=== PATIENT | female | born 1990 | race Caucasian/White ===

== ENCOUNTER 2016-11-23 16:46 | Outpatient (CLI) | payer MEDICAID ==
[2016-11-24 20:57] LABS: TEST RESULT REPORT (())
== END 2016-11-23 16:47 | disposition home or self-care (01) ==
LOC: LAB.R 16:46
PROVIDERS: ATTEND Nurse Practitioner Obstetrics & Gynecology
DX: N76.0 Acute vaginitis (principal)
CPT/HCPCS: 81599; 87480; 87510; 87660

== ENCOUNTER 2017-05-13 08:00 | Outpatient (CLI) | payer MEDICAID | END 2017-05-13 08:01 | disposition home or self-care (01) | LOC: LAB.R 08:00 | PROVIDERS: ATTEND Registered Nurse | DX: Z11.3 Encounter for screening for infections with a predominantly sexual mode of transmission (principal) | CPT/HCPCS: 87491; 87591 ==

== ENCOUNTER 2017-06-05 15:14 | Emergency (ER) | payer MEDICAID ==
[2017-06-05] MEDS ORDERED: traMADol 50 MG TABLET PO STA (17:06)
[2017-06-05] MEDS ORDERED: IBUPROFEN 600 MG TABLET PO STA (17:06)
[2017-06-05] MEDS ORDERED: traMADol 50 MG TABLET PO ONE (17:24)
[2017-06-05] MEDS ORDERED: IBUPROFEN 600 MG TABLET PO ONE (17:24)
--- NOTE | 2017-06-05 17:51 | XRAY Preliminary Report ---
Exam: XR HAND 3 VIEW RT IMPRESSION: 1. No acute osseous abnormalities. [facility] SITE ID: [id number]
--- NOTE | 2017-06-05 17:53 | XRAY Report ---
EXAM: RIGHT HAND RADIOGRAPHY EXAM DATE: 06/05/2017 04:57 PM. CLINICAL HISTORY: Crush injury. Pain. Right 3-5 MTP injury. COMPARISON: None. TECHNIQUE: 3 views. FINDINGS: Bones: Normal. No fractures or bone lesions. Joints: Normal. No subluxations. Soft Tissues: No radiopaque foreign bodies. IMPRESSION: 1. No acute osseous abnormalities. [facility] Referring Provider Line: [phone] SITE ID: [id number]
--- NOTE | 2017-06-05 18:09 | ED Physician Documentation ---
History of Present Illness - Stated complaint Stated Complaint: R HAND INJ - Chief complaint Chief Complaint: Ext Problem - Additonal information Additional information: 27 year old f with right hand pain after cough fell onto hand. 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. * [From 1 + Iron] vitamins with Allergy Unknown Verified 06/05/17 15:21 calcium * [From 1 + Iron] Sulfa (Sulfonamide Allergy Rash Verified 06/05/17 15:21 Antibiotics) - Social History Does the pt smoke?: No Smoking Status: Never smoker Does the pt drink ETOH?: No Does the pt have substance abuse?: No - Immunizations Immunizations are current?: Yes - POLST Patient has POLST: No PD ED PE NORMAL - Extremities Extremities: Other (mild swelling dorsum right hand, neurovascularly intact, no finger deformities, no wrist pain or TTP. FROM hand ) Results - Vitals Vitals: Oxygen O2 Source Room air - Rads (name of study) right orozco Radiology: Other (no fractures) Departure - Departure Disposition: 01 Home, Self Care Clinical Impression: Pain of upper extremity Qualifiers: Laterality: right Qualified Code(s): M79.601 - Pain in right arm Condition: Good Instructions: ED Contusion Upper Extr Ch Comments: Continue to ice your hand and take ibuprofen and Tylenol for your pain. No fractures were identified on your hand x-ray today. Return to the emergency department if you develop any weakness, numbness,or cold temperature of your hand. He may still continue to have pain from soft tissue injury to her hand. Make an appointment to follow-up with her primary care doctor for further management of this. Discharge Date/Time: 06/05/17 18:16
[2017-06-05 18:17] VITALS: BP 108/66
== END 2017-06-05 18:16 | disposition home or self-care (01) ==
LOC: ED 15:14
DX: M79.601 Pain in right arm (principal); W20.8XXA Other cause of strike by thrown, projected or falling object, initial encounter; J45.909 Unspecified asthma, uncomplicated
CPT/HCPCS: 73130; 99282; 99283; A9270

== ENCOUNTER 2017-07-10 21:14 | Emergency (ER) | payer MEDICAID ==
[2017-07-10 21:25] VITALS: BP 121/78
[2017-07-10] MEDS ORDERED: BENZONATATE 100 MG CAPSULE PO STA (21:25)
[2017-07-10] MEDS ORDERED: AMOXICILLIN 250 MG CAPSULE PO STA (21:25)
--- NOTE | 2017-07-10 21:27 | ED Physician Documentation ---
PD HPI HEENT - Stated complaint Stated Complaint: SORE THROAT - Chief complaint Chief Complaint: Heent - History obtained from History obtained from: Patient - History of Present Illness Timing - onset: Other (She developed a sore throat a few days ago and lost her voice, she is also had a runny nose and a cough. No measured fevers but she has had some chills. Today she sneezed and she developed a severe right earache that is bad when she coughs but not too bad otherwise.) Review of Systems Constitutional: reports: Chills. denies: Fever Ears: reports: Ear pain Nose: reports: Rhinorrhea / runny nose Throat: reports: Sore throat Respiratory: reports: Cough. 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 : None HEENT: None Psych: None Musculoskeletal: None Derm: None - Past Surgical History Past Surgical History: No - Present Medications Home Medications: Ambulatory Orders Medication Instructions Recorded Confirmed Amoxicillin 500 mg PO TID #30 capsule 07/10/17 Benzonatate 200 mg PO TID PRN #20 capsule 07/10/17 Guaifenesin/Pseudoephedrne HCl 1 each PO BID PRN #20 tab.er.12h 07/10/17 [Mucinex D ER 600-60 mg Tablet] - Allergies Allergies/Adverse Reactions: Allergies Allergy/AdvReac Type Severity Reaction Status Date / Time ferrous fumarate Allergy Unknown Verified 06/05/17 15:21 [From 1 + Iron] folic acid Allergy Unknown Verified 06/05/17 15:21 [From 1 + Iron] vit,tx Allergy Unknown Verified 06/05/17 15:21 calc,iron,foli... * [From 1 + Iron] vitamins with Allergy Unknown Verified 06/05/17 15:21 calcium * [From 1 + Iron] Sulfa (Sulfonamide Allergy Rash Verified 06/05/17 15:21 Antibiotics) - Social History Does the pt smoke?: No Smoking Status: Never smoker Does the pt drink ETOH?: No Does the pt have substance abuse?: No - Immunizations Immunizations are current?: Yes - POLST Patient has POLST: No PD ED PE NORMAL - Vitals Vital signs reviewed: Yes - General General: Alert and oriented X 3, No acute distress - HEENT HEENT: Other (Right otitis media, left TM is normal. Oropharynx with mildly red pillars but no exudates. No anterior cervical adenopathy.) - Neck Neck: Supple, no meningeal sign - Cardiac Cardiac: RRR, No murmur - Respiratory Respiratory: No respiratory distress, Clear bilaterally - Abdomen Abdomen: Non tender - Neuro Neuro: Alert and oriented X 3, Normal speech - Psych Psych: Normal mood, Normal affect Results - Vitals Vitals: Vital Signs - 24 hr 07/10/17 21:24 Temperature 36.7 C Heart Rate 90 Respiratory 18 Rate Blood Pressure 121/78 O2 Saturation 99 Oxygen O2 Source Room air Departure - Departure Disposition: Home, Self Care Clinical Impression: ROM (right otitis media) Qualifiers: Otitis media type: suppurative Chronicity: acute Recurrence: not specified as recurrent Spontaneous tympanic membrane rupture: without spontaneous rupture Qualified Code(s): H66.001 - Acute suppurative otitis media without spontaneous rupture of ear drum, right ear Condition: Good Record reviewed to determine appropriate education?: Yes Instructions: ED Otitis Media Acute Adult Prescriptions: Amoxicillin 500 mg PO TID #30 capsule Benzonatate 200 mg PO TID PRN #20 capsule PRN Reason: Cough Guaifenesin/Pseudoephedrne HCl [Mucinex D ER 600-60 mg Tablet] 1 each PO BID PRN #20 tab.er.12h PRN Reason: congestion Comments: Call your doctor to arrange a follow-up appointment, make the next available appointment. In the interim, return anytime if worse or if new symptoms develop. Discharge Date/Time: 07/10/17 21:30
== END 2017-07-10 21:30 | disposition home or self-care (01) ==
LOC: ED 21:14
DX: H66.001 Acute suppurative otitis media without spontaneous rupture of ear drum, right ear (principal)
CPT/HCPCS: 99283; A9270

== ENCOUNTER 2017-10-16 09:47 | Day surgery (SDC) | payer MEDICAID ==
[2017-10-16 10:33] LABS: GLUCOSE, URINE (UA) NEGATIVE (NEGATIVE); KETONES,URINE (UA) 40 mg/dL (NEGATIVE); LEUKOCYTE ESTERASE, URINE NEGATIVE (NEGATIVE); NITRITE,URINE NEGATIVE (NEGATIVE); OCCULT BLOOD,URINE NEGATIVE (NEGATIVE); PROTEIN,URINE TRACE mg/dL (NEGATIVE); UROBILINOGEN,URINE 0.2 (NORMAL) E.U./dL (NORMAL)
[2017-10-16 10:46] LABS: CLARITY,URINE SL. CLOUDY (CLEAR); HCG UR QUAL NEGATIVE
[2017-10-16 10:49] LABS: BILIRUBIN,URINE NEGATIVE (NEGATIVE); ICTOTEST,URINE NEGATIVE
[2017-10-16 10:50] LABS: BACTERIA,URINE Moderate /HPF (None Seen); MUCUS,URINE Marked Strands; RBC,URINE 0-5 /HPF (0-5); SPERM,URINE PRESENT; SQUAMOUS EPITHELIAL CELL,UR MOD Squamous (<= Few)
[2017-10-16 10:59] LABS: BASOPHILS % (AUTO) 0.3 %; HGB - HEMOGLOBIN 11.8 g/dL (12.0-16.0); LYMPHOCYTES # (AUTO) 1.2 10^3/uL (1.5-3.5); LYMPHOCYTES % (AUTO) 7.4 %; MEAN CORPUSCULAR HGB CONC 32.6 g/dL (32.0-36.0); MEAN CORPUSCULAR VOLUME 79.8 fL (81.0-99.0); MEAN PLATELET VOLUME 8.7 fL (7.9-10.8); MONOCYTES # (AUTO) 0.9 10^3/uL (0.0-1.0); NEUTROPHILS # (AUTO) 13.5 10^3/uL (1.5-6.6); NEUTROPHILS % (AUTO) 86.3 %; PLT - PLATELET COUNT 378 10^3/uL (130-450); RED BLOOD COUNT 4.54 10^6/uL (4.20-5.40); RED CELL DISTRIBUTION WIDTH 16.4 % (12.0-15.0); WHITE BLOOD COUNT 15.7 x10^3/uL (4.8-10.8)
[2017-10-16 11:04] LABS: ALBUMIN 4.9 g/dL (3.2-5.5); ALBUMIN/GLOBULIN RATIO 1.2 (1.0-2.2); BILIRUBIN,TOTAL 0.8 mg/dL (0.2-1.0); CALCIUM 9.4 mg/dL (8.5-10.3); CREATININE 0.6 mg/dL (0.4-1.0); TOTAL PROTEIN 8.9 g/dL (6.7-8.2)
--- NOTE | 2017-10-16 11:04 | ED Physician Documentation ---
PD HPI ABD PAIN - Stated complaint Stated Complaint: AB PX/NAUSEA/LIGHTHEADED - Chief complaint Chief Complaint: Abd Pain - History obtained from History obtained from: Patient - History of Present Illness Timing - onset: Last night (about 11:30 pm, onset RLQ pain which worsened and persisted into today, with considerable abd pain today. Nausea without vomiting. No vaginal bleeding.) Timing - duration: Hours (12) Timing - details: Gradual onset, Still present Quality: Cramping, Aching, Pain Location: RLQ Radiation: Lower back Improved by: Position. No: Eating Worsened by: Moving, Position, Palpation. No: Eating Associated symptoms: Nausea. 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 * [From 1 + Iron] vitamins with Allergy Unknown Verified 06/05/17 15:21 calcium * [From 1 + Iron] Sulfa (Sulfonamide Allergy Rash Verified 06/05/17 15:21 Antibiotics) - Social History Does the pt smoke?: No Smoking Status: Never smoker Does the pt drink ETOH?: No Does the pt have substance abuse?: No - Immunizations Immunizations are current?: Yes - POLST Patient has POLST: No PD ED PE NORMAL - Vitals Vital signs reviewed: Yes - General General: Alert and oriented X 3, Well developed/nourished, Other (in marked pain , knees drawn up. ) - HEENT HEENT: Pharynx benign - Neck Neck: Supple, no meningeal sign, No adenopathy - Cardiac Cardiac: RRR, No murmur - Respiratory Respiratory: Clear bilaterally - Abdomen Abdomen: Soft, No organomegaly, Other (distended and generally tender with percussion and rebound tenderness most focused on RLQ. ) - Female Female : Deferred - Rectal Rectal: Deferred - Back Back: No CVA TTP - Derm Derm: Normal color - Extremities Extremities: No deformity, Normal ROM s pain, No calf tenderness / cord - Neuro Neuro: Alert and oriented X 3, No motor deficit, Normal speech Results - Vitals Vitals: Vital Signs - 24 hr 10/16/17 10/16/17 10/16/17 10:08 12:25 12:55 Temperature 36.8 C Heart Rate 118 H 84 82 Respiratory 18 16 15 Rate Blood Pressure 101/74 104/67 100/65 O2 Saturation 100 100 100 Oxygen O2 Source Room air - Labs Labs: Laboratory Tests 10/16/17 10/16/17 10/16/17 10:20 10:20 10:20 WBC 15.7 H RBC 4.54 Hgb 11.8 L Hct 36.2 L MCV 79.8 L MCH 26.0 L MCHC 32.6 RDW 16.4 H Plt Count 378 MPV 8.7 Neut # 13.5 H Lymph # 1.2 L [place] # 0.9 Eos # 0.0 Baso # 0.0 Absolute Nucleated RBC 0.01 Nucleated RBC % 0.0 Sodium 133 L Potassium 3.6 Chloride 99 L Carbon Dioxide 24 Anion Gap 10.0 BUN 15 Creatinine 0.6 Estimated GFR (MDRD) 122 Glucose 130 H Calcium 9.4 Total Bilirubin 0.8 AST 23 ALT 12 Alkaline Phosphatase 53 Total Protein 8.9 H Albumin 4.9 Globulin 4.0 Albumin/Globulin Ratio 1.2 Lipase 21 L Urine Color DARK YELLOW Urine Clarity SL. CLOUDY Urine pH 6.0 Ur Specific Park[place] >=1.030 H Urine Protein TRACE Urine Glucose (UA) NEGATIVE Urine Ketones 40 H Urine Occult Blood NEGATIVE Urine Nitrite NEGATIVE Urine Bilirubin NEGATIVE Urine Urobilinogen 0.2 (NORMAL) Ur Leukocyte Esterase NEGATIVE Urine RBC 0-5 Urine WBC 0-3 Ur Squamous Epith Cells MOD Squamous H Urine Bacteria Moderate H Urine Mucus Marked Strands Urine Sperm PRESENT Ur Microscopic Review INDICATED Urine Culture Comments NOT INDICATED Urine HCG, Qual NEGATIVE 04/15/18 12:50 WBC RBC Hgb 8.8 L Hct 26.9 L MCV MCH MCHC RDW Plt Count MPV Neut # Lymph # [place] # Eos # Baso # Absolute Nucleated RBC Nucleated RBC % Sodium Potassium Chloride Carbon Dioxide Anion Gap BUN Creatinine Estimated GFR (MDRD) Glucose Calcium Total Bilirubin AST ALT Alkaline Phosphatase Total Protein Albumin Globulin Albumin/Globulin Ratio Lipase Urine Color Urine Clarity Urine pH Ur Specific [place] Urine Protein Urine Glucose (UA) Urine Ketones Urine Occult Blood Urine Nitrite Urine Bilirubin Urine Urobilinogen Ur Leukocyte Esterase Urine RBC Urine WBC Ur Squamous Epith Cells Urine Bacteria Urine Mucus Urine Sperm Ur Microscopic Review Urine Culture Comments Urine HCG, Qual - Rads (name of study) abd CT Radiology: Prelim report reviewed, Discussed with rads, EMP read contemporaneously (signfiicant free fluid in pelvis and tracking right abd/ gutter. Blushing right lower/adnexal area c/w acute ongoing bleeding. ) PD MEDICAL DECISION MAKING - ED course Complexity details: reviewed results, re-evaluated patient (Her pain level is improved. She is given IV fluids. Her repeat hemoglobin shows considerable drop in the level consistent with ongoing bleeding. Abdominal exam is crusher tender largely in the lower abdomen with some distention consistent with peritoneal signs. Dr. Alis Renee is here to evaluate the patient and she will be taken to the OR for laparoscopic surgery.), considered differential, d/ w patient, d/w senior [employer] consultant (Dr. Renee - called to see patient for concern of ruptured cyst/significant pelvic bleeding. ) Departure - Departure Disposition: ED Transfer to [facility] Clinical Impression: Intraperitoneal bleeding Abdominal pain Qualifiers: Abdominal location: right lower quadrant Qualified Code(s): R10.31 - Right lower quadrant pain Condition: Serious Record reviewed to determine appropriate education?: Yes
[2017-10-16] MEDS ORDERED: ACETAMINOPHEN 1,000 MG/100 ML 100 ML IV STA (11:18)
[2017-10-16] MEDS ORDERED: HYDROmorphone 1 MG/ML CARPUJECT IVP STA ×2 (11:18→12:10)
[2017-10-16] MEDS ORDERED: ONDANSETRON 4 MG/2 ML VIAL IVP STA (11:18)
[2017-10-16] MEDS ORDERED: SODIUM CHLORIDE 0.9% 1,000 ML IV ONE ×2 (11:18→12:42)
[2017-10-16] MEDS ORDERED: IOPAMIDOL-300 100 ML VIAL ONE (11:35)
[2017-10-16] MEDS ORDERED: IOPAMIDOL-300 100 ML VIAL IVP ONE (11:46)
[2017-10-16 12:54] LABS: HGB - HEMOGLOBIN 8.8 g/dL (12.0-16.0)
--- NOTE | 2017-10-16 12:58 | CT Report ---
EXAM: CT ABDOMEN AND PELVIS EXAM DATE: 10/16/2017 11:46 AM. CLINICAL HISTORY: RLQ pain since last night. COMPARISONS: CT abdomen/pelvis 08/20/2014. TECHNIQUE: Routine helical CT imaging was performed through the abdomen and pelvis. IV contrast: ISOV UE 300 100mL. Enteric contrast: No. Reconstructions: Coronal and sagittal. In accordance with CT protocol optimization, one or more of the following dose reduction techniques w ere utilized for this exam: automated exposure control, adjustment of mA and/or KV based on patient s ize, or use of iterative reconstructive technique. FINDINGS: Lung Bases: Unremarkable. Liver: Normal. No masses. Gallbladder/Bile Ducts: Unremarkable. Spleen: Normal. Pancreas: Normal. Adrenal Glands: Normal. Kidneys: Normal. No masses or hydronephrosis. Peritoneal Cavity/Bowel: There is fairly large volume intermediate density free peritoneal fluid sugg esting blood products with areas of denser attenuation in the pelvis suggesting clot. This obscures p elvic and adnexal structures. There appears to be focal contrast blush at the right pelvis suggesting active extravasation. Pelvic mass is not excluded. There is soft tissue prominence in the region of the cervix. There is a apparent 16 mm right adnexal cystic-appearing hypodensity. No free air. Partially visualized appendix poorly evaluated due to surrounding fluid but appears normal caliber to the extent visualized. Pelvic Organs: As above. Urinary bladder is unremarkable. Vasculature: As above. No aortic aneurysm. Bones: No significant abnormality. Other: None. IMPRESSION: 1. Large-volume hemoperitoneum, with mixed density in the pelvis, likely blood products, obscuring pe lvic and adnexal structures. Pelvic mass is not excluded. There appears to be focal contrast blush at the right pelvis suggesting active extravasation. 2. There is soft tissue fullness in the region of the cervix and apparent 16 mm right adnexal cystic- appearing hypodensity. 3. Poorly visualized appendix due to surrounding fluid appears normal caliber. 4. Other findings as noted above [facility] The above findings were discussed with Dr. Lawson by Dr. Gregg Gonzalez at 12:56 hrs on 10/16/17. Referring Provider Line: [phone] SITE ID: [id number]
[2017-10-16] MEDS ORDERED: ceFAZolin 1 GM VIAL IV ONE (13:21)
[2017-10-16] MEDS ORDERED: TRANEXAMIC ACID 1,000 MG in SODIUM CHLORIDE 0.9% 100ML 100 ML IV STA (13:26)
[2017-10-16] MEDS ORDERED: TRANEXAMIC ACID 1,000 MG/10 ML VIAL ONE (13:51)
[2017-10-16] MEDS ORDERED: BUPIVACAINE 0.5%-EPI 1:200000 PF 30 ML VIAL SUBQ ONE ×2 (14:34)
[2017-10-16] MEDS ORDERED: BUPIVACAINE 0.5%-EPI 1:200000 PF 10 ML VIAL ONE (14:42)
[2017-10-16] MEDS ORDERED: LACTATED RINGERS 1,000 ML IV ONE ×4 (14:50→18:59)
[2017-10-16] MEDS ORDERED: fentaNYL 100 MCG/2 ML VIAL IVP ONE (14:50)
[2017-10-16] MEDS ORDERED: PHENYLEPHRINE 10 MG/ML VIAL IV ONE (14:50)
[2017-10-16] MEDS ORDERED: NEOSTIGMINE 1 MG/1 ML 10 ML MDV IVP ONE (14:50)
[2017-10-16] MEDS ORDERED: KETOROLAC 30 MG/ML VIAL IVP ONE (14:50)
[2017-10-16] MEDS ORDERED: PROPOFOL 200 MG/20 ML VIAL IVP ONE (14:50)
[2017-10-16] MEDS ORDERED: GLYCOPYRROLATE 1 MG/5 ML VIAL IVP ONE (14:50)
[2017-10-16] MEDS ORDERED: LIDOCAINE-MPF 2% 5 ML VIAL IM ONE (14:50)
[2017-10-16] MEDS ORDERED: MIDAZOLAM 2 MG/2 ML VIAL IVP ONE (14:50)
[2017-10-16] MEDS ORDERED: ROCURONIUM 50 MG/5 ML VIAL IVP ONE (14:50)
[2017-10-16] MEDS ORDERED: ONDANSETRON 4 MG/2 ML VIAL IVP ONE (14:50)
[2017-10-16] MEDS ORDERED: DEXAMETHASONE 4 MG/ML VIAL IVP ONE (14:50)
--- NOTE | 2017-10-16 15:49 | OPERATIVE REPORT ---
Operative Report - Other Other Information/Narrative: Date of Operation: 10/16/2017 Surgeon: Alis Renee DO FACOG Operations Vocational Instructor: None Game Farm Supervisor: Ja Jean CRNA Anesthesia: GET Pre-Op Dx: 1. 27 yo 2. Ruptured right hemorrhagic ovarian cyst 3. Hemoperitoneum Post-Op Dx: 1. 27 yo 2. Ruptured right hemorrhagic ovarian cyst 3. Hemoperitoneum Procedure: 1. Diagnostic laparoscopy 2. Right ovarian cystectomy Findings: 1. Hemoperitoneum 2. Actively bleeding right ovarian cyst 3. Possible endometriosis on right tube Specimens: Right ovarian cyst wall Drains: None EBL: 600 mL Complications: None OP note dictation #: [id number]
[2017-10-16 16:21] LABS: HGB - HEMOGLOBIN 7.7 g/dL (12.0-16.0)
[2017-10-16] MEDS ORDERED: CELECOXIB 100 MG CAPSULE PO ONE (17:15)
[2017-10-16 17:32] VITALS: BP 115/74
[2017-10-16] MEDS ORDERED: HYDROcod/ACET 5/325 Prepack 4 PO ONE (18:04)
--- NOTE | 2017-10-16 18:07 | PREOP HISTORY & PHYSICAL ---
DATE OF SERVICE: 10/16/2017 Physician: Alis Renee DO IDENTIFICATION: A 27-year-old G3, P1-0-2-1. LMP is 09/15/2017. HISTORY OF PRESENT ILLNESS: Patient presented to the [facility] Emergency Department today with complaints of abdominal pain. She states that the pain began last night at about 11:30 p.m. Patient states that after she had intercourse, she started to have a slow onset of right lower quadrant pain about 10 to 15 minutes after sexual relations. The pain increased to at its worst 01/10-02/10. The pain had some slight radiation to her back. The pain was constant, but she had some short spurts of sharp pain. This pain has never occurred before. Patient denies taking any [id number] medications. She also denied any dysuria or hematuria. There has been no vaginal bleeding, no abnormal discharge. Patient denies any constipation, diarrhea, fevers, or chills. She also denies vomiting but did state that she has had some nausea. PAST MEDICAL HISTORY: Exercise-induced asthma. PAST SURGICAL HISTORY: None. ALLERGIES: SULFA, WITH WHICH SHE HAS HIVES. Her pharmacy of choice is [facility], and she does not have a primary care physician. MEDICATIONS: None. SOCIAL HISTORY: She denies any tobacco or illicit drug use. She does consume alcohol on a social basis. Patient does have a 5-year-old daughter named Arlin. She works at the [employer] here in [place], [place]. She is currently dating. PAST OBSTETRICAL HISTORY: One term spontaneous vaginal delivery of daughter, Arlin, who weighed 7 pounds 4-1/2 ounces. Patient does want more children in the future, and she is not taking any contraception at this point in time. PAST GYNECOLOGICAL HISTORY: All Paps have been within normal limits, and she denies any sexually transmitted diseases. She states that Pap smears are current. Menses on a monthly basis and last for 5-7 days. She denies any menorrhagia or dysmenorrhea. She has been on control pills in the past but states that it makes her tired. FAMILY HISTORY: She denies any female carcinoma. REVIEW OF SYSTEMS: Negative unless otherwise stated. PHYSICAL EXAMINATION VITAL SIGNS: Temperature is 98.2, heart rate 118, blood pressure 101/74, 104/67 , 100/65. GENERAL: Patient is a well-developed, well-nourished female in no apparent distress. She is alert and oriented x3. HEENT: Within normal limits. CARDIOVASCULAR: Regular. No murmurs or rubs. PULMONARY: Lungs clear to auscultation bilaterally. ABDOMEN: Rigid and tender. There is no guarding. LABORATORY DATA Initial white count of 15.7, hemoglobin and hematocrit of 11.8 and 36.2 respectively, platelets 378. Repeat H and H about 2-1/2 hours later showed decreased H and H of 8.8 and 26.9. Urinalysis was remarkable for moderate squamous epithelial cells, moderate bacteria. Urinary sperm was present, and a urine culture is not indicated. Urine hCG is negative. CT of the abdomen and pelvis performed today reveals a fairly large-volume intermediate density-free peritoneal fluid, suggesting blood products, with areas of denser attenuation in the pelvis, suggesting clot. This obscures pelvis and adnexal structures. There appears to be a focal contrast blush at the right pelvis, suggesting active extravasation. A pelvic mass is not excluded. There is soft tissue prominence in the region of the cervix. There is apparent 6 mm right adnexal cyst appearing hypodensity. No free air. Partially visualized appendix poorly evaluated due to surrounding fluid but appears normal caliber to the extent visualized. The urinary bladder is unremarkable. ASSESSMENT 1. A 27-year-old G3, P1-0-2-1. 2. Ruptured right hemorrhagic cyst. 3. Hemoperitoneum. PLAN 1. Discussed with patient that I strongly recommend proceeding to a diagnostic laparoscopy at this point in time. I would go ahead and stop the bleeding and potentially remove a right hemorrhagic ovarian cyst. In rare cases, I may have to perform a partial or a complete oophorectomy. This, of course, would be performed only if necessary as I would like to have patient maximize her fertility. Included in the risks were hemorrhage, infection, damage to surrounding organs. With respect to damage to surrounding organs, this may be inadvertent laceration, cauterization, or ligation of the adjacent intestines, ureters, and bladder. Depending on the amount of blood that is occurring, I may have to observe patient for serial hemoglobins and hematocrits. After all of patient's questions were answered to her satisfaction, she verbalized her desire to proceed with surgery. Consent has been signed. 2. Patient has given me permission to discuss results with Esteban Bakerton at [phone], who is an aunt of patient's daughter, Arlin. 3. Anticipate giving patient prescriptions for Tylenol, Motrin, and Vicodin for postop recovery. 4. Anticipate seeing patient in 2 weeks for routine postop evaluation, as well as to discuss surgical findings. TD: 10/16/2017 18:06 BHARAT
--- NOTE | 2017-10-16 18:43 | OPERATIVE REPORT ---
DATE OF OPERATION: 10/16/2017 PREOPERATIVE DIAGNOSES 1. A 27-year-old G3, P1-0-2-1. 2. Ruptured right hemorrhagic ovarian cyst. 3. Hemoperitoneum. POSTOPERATIVE DIAGNOSES 1. A 27-year-old G3, P1-0-2-1. 2. Ruptured right hemorrhagic ovarian cyst. 3. Hemoperitoneum. NAME OF PROCEDURE 1. Diagnostic laparoscopy. 2. Right ovarian cystectomy. SURGEON: Alis Renee DO, FACOG TUBE WASHER: None. BRICK SORTER: Ja Jean CRNA ANESTHESIA: General, endotracheal tube. FINDINGS 1. Hemoperitoneum. 2. Actively bleeding right ovarian cyst. 3. Small bluish area on anterior portion of right fallopian tube, concerning for endometriosis. SPECIMENS: Right ovarian cyst wall. DRAINS: None. ESTIMATED BLOOD LOSS: 600 mL COMPLICATIONS: None. BRIEF HISTORY: Patient presented to [facility] Emergency Department with complaints of abdominal pain post-coitus last night. Workup was significant for large amount of hemoperitoneum on CT. Her H and H had a decrease of 3 grams of hemoglobin. Her test was negative. I recommended patient to proceed to a diagnostic laparoscopy as she may have an actively bleeding hemorrhagic cyst that may require transfusion. I discussed with patient the risks, benefits, alternatives, indications, expectations of a diagnostic laparoscopy with possible ovarian cystectomy. Included in the risks were hemorrhage, infection, damage to surrounding organs. With respect to damage to surrounding organs, this may be an inadvertent laceration, cauterization or ligation of adjacent intestines, bladder and ureters. Also with this procedure, I may have to perform a partial oophorectomy if not a complete oophorectomy in order to prevent hemorrhage. This would not be my preference as I would like to maximize patient's fertility. After all of patient's questions were answered to her satisfaction, she verbalized her desire to proceed with surgery. Consent forms have been signed. OPERATION IN DETAIL: Patient was identified, consented, and taken to the operating room where IV access was already in place. She was then given satisfactory general endotracheal tube anesthesia as per Ja Jean. Patient was given sequential compression devices, which were placed on lower extremities and turned on prior to induction of anesthesia. A Lopez catheter was placed in her bladder, and she was prepped and draped in normal sterile fashion in supine position. Antibiotics were not indicated in this case. A timeout was performed which correctly identified the patient, site of procedure , and procedure itself. Three laparoscopic 5 mm port sites were first identified and then injected with 0.5% lidocaine with epinephrine. A total of 16 mL were used. The 3 spots were in the subumbilical fold, left lower quadrant, and right lower quadrant. Lower quadrant incision sites were identified by first finding the respective anterior superior iliac spine and then moving 2 fingerbreadths superior and then medial to those locations. Stab incisions were made. Entrance in the abdomen was first made in the subumbilical fold. Using the Visiport trocar, direct entrance to the abdomen was performed. No trauma to intraabdominal organs was noted. CO2 gas was then used to insufflate the abdomen, thus obtaining satisfactory pneumoperitoneum. The 2 other lower quadrant port sites were then placed under direct visualization of the camera into the abdomen. Again, no trauma to intra-abdominal organs was noted. Inspection of the pelvis revealed a large amount of clot and blood. Suction chisel grinder was used, and 600 mL of clot and blood were obtained. Closer inspection of the pelvis revealed an actively bleeding, ruptured right ovarian cyst at the distal portion of the ovary. The left adnexa was within normal limits. I did see what questionably looked like a spot of endometriosis on the right fallopian tube, but I did not want to biopsy this, as by performing a biopsy, this may lead to an ectopic secondary to scarring from biopsy. It had a bluish appearance to the location and measured approximately 1 mm in its widest dimension. It was located on the superior portion of the right fallopian tube approximately two-thirds distal to the tubal insertion. I did not see any other areas of endometriosis. The right ovary was then grasped, and the cyst wall was gently teased off the ovary. The cell wall was obtained in several small pieces of tissue. Next, with bipolar and then monopolar cautery, hemostasis was obtained. In order to ensure further hemostasis, 4 strips of Surgicel were then wrapped around the ovary. At this point in time, the surgery was completed. CO2 gas was allowed to egress into the atmosphere, thus relieving the pneumoperitoneum. All instruments were removed out of the abdomen. The 3 laparoscopic port sites were then closed with 4-0 Monocryl in subcuticular fashion. Dermabond was then placed on top. The Lopez catheter that was placed at the beginning of the operation was then removed. Patient will be discharged to home later today after postoperative criteria are met. Given the EBL of 600 mL and the 3 gram drop in the hemoglobin, I will go ahead and repeat patient's H and H again. Assuming there is no significant change, I will discharge patient to home. Three prescriptions for ibuprofen, Tylenol and Vicodin have been written for patient for postoperative recovery. I told patient prior to surgery that I would like to see her back at [facility] in 2 weeks for a routine postoperative visit, as well as to discuss intraoperative findings. All sponge, lap, and needle counts were correct x2 as per nurse report. Patient was taken back to Recovery in stable condition. I will go ahead and call Esteban Crabtree, patient's stated aunt for her daughter, Arlin, as well as her father, Justen Smart, with whom patient had given verbal consent for discussion of medical care at [phone]. TD: 10/16/2017 18:41 BHARAT
[2017-10-16] MEDS ORDERED: FERRIC GLUCONATE 125 MG in SODIUM CHLORIDE 0.9% 100ML 100 ML IV ONE (19:30)
[2017-10-16] MEDS ORDERED: ACETAMINOPHEN 1,000 MG/100 ML 100 ML IV SCH (20:00)
[2017-10-16] MEDS ORDERED: FERRIC GLUCONATE 125 MG in SODIUM CHLORIDE 0.9% 100ML 100 ML IV SCH (20:01)
[2017-10-16 20:17] LABS: HGB - HEMOGLOBIN 7.9 g/dL (12.0-16.0)
== END 2017-10-16 21:30 | disposition home or self-care (01) ==
LOC: ED 09:47 → SDS 13:20 → OBS 17:49 → SDS 21:30
PROVIDERS: ATTEND Obstetrics & Gynecology
PROC: 0UB04ZZ Excision of Right Ovary, Percutaneous Endoscopic Approach (ICD-10-PCS; principal; 2017-10-16 14:00)
DX: N83.11 Corpus luteum cyst of right ovary (principal); K66.1 Hemoperitoneum
CPT/HCPCS: 36415; 58662; 74177; 80053; 81001; 81025; 83690; 85014; 85018; 85025; 86850; 86900; 86901; 96361; 96365; 96367; 96375; 96376; 99283; 99284; A9270; J0131; J1170; J2916; J7120; Q9967; 81003; 87086; 88305

== ENCOUNTER 2018-05-15 15:24 | Emergency (ER) | payer MEDICAID ==
--- NOTE | 2018-05-15 16:20 | XRAY Report ---
Reason: cough, wheezing, hx asthma Procedure Date: 05/15/2018 Accession Number: [id number] / [id number] Procedure: XR - Chest 2 View X-Ray CPT Code: 65847 FULL RESULT: EXAM: CHEST RADIOGRAPHY EXAM DATE: 05/15/2018 04:11 PM. CLINICAL HISTORY: Cough, wheezing, hx asthma. COMPARISON: None. TECHNIQUE: 2 views. FINDINGS: Lungs/Pleura: No focal opacities evident. No pleural effusion. No pneumothorax. Normal volumes. Mediastinum: Heart and mediastinal contours are unremarkable. Other: None. IMPRESSION: No acute radiographic cardiopulmonary process RADIA
[2018-05-15] MEDS ORDERED: DEXAMETHASONE 10 MG/ML VIAL PO STA (16:53)
[2018-05-15] MEDS ORDERED: ALBUTEROL NEB 2.5 MG/3 ML INH STA (16:53)
--- NOTE | 2018-05-15 16:58 | ED Physician Documentation ---
History of Present Illness - Stated complaint Stated Complaint: WHEEZING/VOMITING/SOA/COUGH - Chief complaint Chief Complaint: Resp - Additonal information Additional information: hx from pt 28 y/o f denies preg hx asthma recent cough myalgias NV using albuterol 4 X per day s relief Review of Systems Constitutional: reports: Myalgias. denies: Fever Respiratory: reports: Cough GI: reports: Vomiting. denies: Abdominal Pain, Diarrhea : denies: Now EGA PD PAST MEDICAL HISTORY - Past Medical History Past Medical History: Yes Cardiovascular: None Respiratory: Asthma Endocrine/Autoimmune: None GI: None DISTRIBUTION LEAD: None : None HEENT: None Psych: None Musculoskeletal: None Derm: None - Past Surgical History Past Surgical History: No - Present Medications Home Medications: Ambulatory Orders Medication Instructions Recorded Confirmed Ferrous Sulfate 325 mg PO TIDWM 10/16/17 10/16/17 Benzonatate [Tessalon Perle] 100 mg PO TID PRN #20 capsule 05/15/18 guaiFENesin/DEXTROMETHORPHAN 10 ml PO Q6H PRN #120 ml 05/15/18 [Robitussin Dm] predniSONE [Deltasone] 60 mg PO DAILY #5 tablet 05/15/18 - Allergies Allergies/Adverse Reactions: Allergies Allergy/AdvReac Type Severity Reaction Status Date / Time Sulfa (Sulfonamide Allergy Rash Verified 05/15/18 15:51 Antibiotics) - Social History Does the pt smoke?: No Smoking Status: Never smoker Does the pt drink ETOH?: No Does the pt have substance abuse?: No - Immunizations Immunizations are current?: Yes - POLST Patient has POLST: No PD ED PE NORMAL - Vitals Vital signs reviewed: Yes - Neck Neck: Supple, no meningeal sign - Cardiac Cardiac: RRR - Respiratory Respiratory: Other (barron wheezing) - Derm Derm: Normal color - Extremities Extremities: No deformity, No edema, No calf tenderness / cord - Neuro Neuro: Alert and oriented X 3 Results - Vitals Vitals: Vital Signs - 24 hr 05/15/18 05/15/18 15:46 17:09 Temperature 36.1 C L Heart Rate 77 74 Respiratory 18 16 Rate Blood Pressure 113/76 O2 Saturation 99 Oxygen O2 Source Room air - Labs Labs: Laboratory Tests 05/15/18 16:56 Influenza A (Rapid) Negative Influenza B (Rapid) Negative - Rads (name of study) CXR Radiology: See rad report (NACPD) Departure - Departure Disposition: 01 Home, Self Care Clinical Impression: Viral URI with cough Condition: Good Instructions: ED URI Viral W Wheezing Prescriptions: Benzonatate [Tessalon Perle] 100 mg PO TID PRN #20 capsule PRN Reason: Cough guaiFENesin/DEXTROMETHORPHAN [Robitussin Dm] 10 ml PO Q6H PRN #120 ml PRN Reason: Cough predniSONE [Deltasone] 60 mg PO DAILY #5 tablet Comments: The xray did not show pneumonia and the flu swabs were negative This is likely a viral infection I have prescribed steroids to decrease airway swelling Tessalon and robitussin DM for cough And use your albuterol every 4 hr for the next three days, then as needed Forms: Activity restrictions
[2018-05-15 18:08] VITALS: BP 106/62
== END 2018-05-15 18:09 | disposition home or self-care (01) ==
LOC: ED 15:24
DX: J06.9 Acute upper respiratory infection, unspecified (principal); J45.909 Unspecified asthma, uncomplicated
CPT/HCPCS: 71046; 87275; 87276; 94640; 99283

== ENCOUNTER 2018-08-02 08:00 | Outpatient (CLI) | payer MEDICAID | END 2018-08-02 23:59 | disposition home or self-care (01) | LOC: LAB.R 08:00 | PROVIDERS: ATTEND Nurse Practitioner Obstetrics & Gynecology | DX: N76.0 Acute vaginitis (principal); Z11.3 Encounter for screening for infections with a predominantly sexual mode of transmission | CPT/HCPCS: 87480; 87491; 87510; 87591; 87660 ==

== ENCOUNTER 2018-09-13 09:54 | Emergency (ER) | payer MEDICAID ==
[2018-09-13] MEDS ORDERED: ONDANSETRON ODT 4 MG TABLET TL STA (10:54)
[2018-09-13] MEDS ORDERED: ALBUTEROL NEB 2.5 MG/3 ML INH STA (11:13)
--- NOTE | 2018-09-13 11:19 | ED Physician Documentation ---
History of Present Illness - Stated complaint Stated Complaint: VOMITING/FEVER/R EAR PAIN - Chief complaint Chief Complaint: General - History obtained from History obtained from: Patient - History of Present Illness Timing: How many days ago (3) Pain level max: 4 Pain level now: 4 - Additonal information Additional information: Patient with cough congestion, rhinorrhea. Also wheezing. Last used her inhaler last night. Has right ear pain as well. Nothing makes it better. Worse with exertion Review of Systems Constitutional: reports: Fever Respiratory: reports: Cough GI: reports: Nausea : denies: Now EGA Skin: denies: Rash Musculoskeletal: denies: Neck pain, Back pain PD PAST MEDICAL HISTORY - Past Medical History Cardiovascular: None Respiratory: Asthma Endocrine/Autoimmune: None GI: None LIFT DRIVER: None : None HEENT: None Psych: None Musculoskeletal: None Derm: None - Past Surgical History Past Surgical History: No - Present Medications Home Medications: Ambulatory Orders Medication Instructions Recorded Confirmed Albuterol Sulfate [Albuterol 2 puffs INH Q4HR PRN 09/13/18 09/13/18 Sulfate Hfa] Amox/Clav 875/125 [Augmentin 1 each PO Q12H #20 tablet 09/13/18 875/125] Benzonatate [Tessalon Perle] 100 - 200 mg PO TID PRN #30 capsule 09/13/18 Ibuprofen [Motrin] 800 mg PO Q8H PRN #30 tablet 09/13/18 Ondansetron Odt [Zofran] 4 mg TL Q6H PRN #10 tablet 09/13/18 - Allergies Allergies/Adverse Reactions: Allergies Allergy/AdvReac Type Severity Reaction Status Date / Time Sulfa (Sulfonamide Allergy Rash Verified 09/13/18 10:16 Antibiotics) - Social History Does the pt smoke?: No Smoking Status: Never smoker Does the pt drink ETOH?: No Does the pt have substance abuse?: No - Immunizations Immunizations are current?: Yes - POLST Patient has POLST: No PD ED PE NORMAL - Vitals Vital signs reviewed: Yes - General General: Alert and oriented X 3, No acute distress - HEENT HEENT: Moist mucous membranes, Pharynx benign, Other (Left TM is normal. Right TM is erythematous, dull, bulging with loss of landmarks. Purulent fluid present) - Neck Neck: Supple, no meningeal sign - Cardiac Cardiac: RRR - Respiratory Respiratory: No respiratory distress, Other (Mild wheezing bilaterally) - Abdomen Abdomen: Soft, Non tender, Non distended - Derm Derm: No rash - Extremities Extremities: No edema - Neuro Neuro: Alert and oriented X 3 Results - Vitals Vitals: Vital Signs - 24 hr 09/13/18 09/13/18 09/13/18 10:12 10:36 11:30 Temperature 38 C H 37 C Heart Rate 112 H 91 98 Respiratory 18 15 16 Rate Blood Pressure 128/79 116/77 O2 Saturation 100 100 09/13/18 12:42 Temperature 37.1 C Heart Rate 98 Respiratory 18 Rate Blood Pressure 120/78 O2 Saturation 97 Oxygen O2 Source Room air PD MEDICAL DECISION MAKING - ED course Complexity details: re-evaluated patient, considered differential, d/w patient ED course: Patient with what appears to be a viral syndrome complicated by a right acute otitis media. She is well-appearing, nontoxic. Feels better after nebulizer treatment. Will prescribe antibiotic for home. Patient counseled regarding signs and symptoms for which I believe and urgent re-evaluation would be necessary. Patient with good understanding of and agreement to plan and is comfortable going home at this time This document was made in part using voice recognition software. While efforts are made to proofread this document, sound alike and grammatical errors may occur. Departure - Departure Disposition: 01 Home, Self Care Clinical Impression: Viral URI with cough Otitis media, right Qualifiers: Otitis media type: suppurative Chronicity: acute Recurrence: non-recurrent Spontaneous tympanic membrane rupture: without spontaneous rupture Qualified Code(s): H66.001 - Acute suppurative otitis media without spontaneous rupture of ear drum, right ear Condition: Good Instructions: ED Otitis Media Acute Adult, ED Viral Syndrome Follow-Up: your,doctor in 1 week [Other] Prescriptions: Amox/Clav 875/125 [Augmentin 875/125] 1 each PO Q12H #20 tablet Benzonatate [Tessalon Perle] 100 - 200 mg PO TID PRN #30 capsule PRN Reason: Cough Ibuprofen [Motrin] 800 mg PO Q8H PRN #30 tablet PRN Reason: PAIN &/OR FEVER Ondansetron Odt [Zofran] 4 mg TL Q6H PRN #10 tablet PRN Reason: Nausea / Vomiting Comments: Take all antibiotics until gone. Return if you worsen. Follow-up with your doctor for further care. Forms: Activity restrictions Discharge Date/Time: 09/13/18 12:43
[2018-09-13 12:43] VITALS: BP 120/78
== END 2018-09-13 12:43 | disposition home or self-care (01) ==
LOC: ED 09:54
DX: J06.9 Acute upper respiratory infection, unspecified (principal); B97.89 Other viral agents as the cause of diseases classified elsewhere; H66.001 Acute suppurative otitis media without spontaneous rupture of ear drum, right ear; R06.2 Wheezing
CPT/HCPCS: 94640; 99283; Q0162

== ENCOUNTER 2018-11-20 16:36 | Emergency (ER) | payer MEDICAID ==
[2018-11-20] MEDS ORDERED: predniSONE 20 MG TABLET PO STA (16:59)
[2018-11-20] MEDS ORDERED: AMOX/CLAV 875 MG/125 MG TABLET PO STA (16:59)
[2018-11-20] MEDS ORDERED: IPRATROPIUM/ALBUTEROL 3 ML NEB INH STA (16:59)
--- NOTE | 2018-11-20 17:02 | ED Physician Documentation ---
PD HPI DYSPNEA - Stated complaint Stated Complaint: COUGH - Chief complaint Chief Complaint: Resp - History obtained from History obtained from: Patient - History of Present Illness Timing - onset: Other (28-year-old with mild intermittent asthma, never hospitalized presents with 2 days of sinus pain, chest congestion, Wheezing and shortness of breath. No fevers. She has a productive cough. No sick contacts or recent travel. 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 : None HEENT: None Psych: None Musculoskeletal: None Derm: None - Past Surgical History Past Surgical History: No /BUNDLE CLERK: Other - Present Medications Home Medications: Ambulatory Orders Medication Instructions Recorded Confirmed Albuterol Sulfate [Albuterol 2 puffs INH Q4HR PRN 09/13/18 09/13/18 Sulfate Hfa] Albuterol Sulf [Ventolin Hfa 1 - 2 puffs INH Q4HR PRN #1 inhaler 11/20/18 Inhaler] Amox/Clav 875/125 [Augmentin] 1 each PO Q12H #20 tablet 11/20/18 predniSONE [Deltasone] 60 mg PO DAILY 5 Days tablet 11/20/18 - Allergies Allergies/Adverse Reactions: Allergies Allergy/AdvReac Type Severity Reaction Status Date / Time Sulfa (Sulfonamide Allergy Rash Verified 11/20/18 16:44 Antibiotics) - Social History Does the pt smoke?: No Smoking Status: Never smoker Does the pt drink ETOH?: Yes Does the pt have substance abuse?: Yes Substance Use and Type: Marijuana - Immunizations Immunizations are current?: Yes - POLST Patient has POLST: No PD ED PE NORMAL - Vitals Vital signs reviewed: Yes - General General: Alert and oriented X 3, No acute distress - HEENT HEENT: Other (Left TM is retracted, she is tender over the left maxillary sinus. Oropharynx and right TM are normal.) - Neck Neck: Supple, no meningeal sign, No bony TTP - Cardiac Cardiac: RRR, No murmur - Respiratory Respiratory: Other (Wheezy and rhonchorous throughout, nonlabored) - Abdomen Abdomen: Non tender - Neuro Neuro: Alert and oriented X 3, Normal speech Results - Vitals Vitals: Vital Signs - 24 hr 11/20/18 16:43 Temperature 36.9 C Heart Rate 73 Respiratory 18 Rate Blood Pressure 118/75 O2 Saturation 99 Oxygen O2 Source Room air Departure - Departure Disposition: Home, Self Care Clinical Impression: Bronchitis Sinusitis Qualifiers: Sinusitis location: maxillary Chronicity: acute Recurrence: non-recurrent Qualified Code(s): J01.00 - Acute maxillary sinusitis, unspecified Asthma exacerbation Qualifiers: Asthma severity: mild Asthma persistence: intermittent Qualified Code(s): J45.21 - Mild intermittent asthma with (acute) exacerbation Condition: Good Record reviewed to determine appropriate education?: Yes Instructions: Asthma Dc, ED Sinusitis Abx Tx Prescriptions: Albuterol Sulf [Ventolin Hfa Inhaler] 1 - 2 puffs INH Q4HR PRN #1 inhaler PRN Reason: Shortness Of Air/Wheezing Amox/Clav 875/125 [Augmentin] 1 each PO Q12H #20 tablet predniSONE [Deltasone] 60 mg PO DAILY 5 Days tablet Comments: Call your doctor to arrange a follow-up appointment, make the next available appointment. In the interim, return anytime if worse or if new symptoms develop.
[2018-11-20 17:29] VITALS: BP 119/67
== END 2018-11-20 17:30 | disposition home or self-care (01) ==
LOC: ED 16:36
DX: J45.21 Mild intermittent asthma with (acute) exacerbation (principal); J01.00 Acute maxillary sinusitis, unspecified
CPT/HCPCS: 94640; 94664; 99283; A9270; J7512

== ENCOUNTER 2019-01-06 14:05 | Emergency (ER) | payer MEDICAID ==
[2019-01-06] MEDS ORDERED: ONDANSETRON 4 MG/2 ML VIAL IVP STA (15:37)
[2019-01-06] MEDS ORDERED: LOPERAMIDE 2 MG CAPSULE PO STA (15:37)
[2019-01-06] MEDS ORDERED: SODIUM CHLORIDE 0.9% 1,000 ML IV ONE (15:37)
[2019-01-06] MEDS ORDERED: KETOROLAC 30 MG/ML VIAL IVP STA (15:37)
--- NOTE | 2019-01-06 15:38 | ED Physician Documentation ---
PD HPI ABD PAIN - Stated complaint Stated Complaint: V/D/N - Chief complaint Chief Complaint: Abd Pain - History obtained from History obtained from: Patient - History of Present Illness Timing - onset: Yesterday (She woke up yesterday morning with nausea, stomach cramps and diarrhea. She thought she might be hung over but symptoms are persistent, she also considered food poisoning as she may have had some undercooked or raw shrimp the night prior. No sick contacts or recent travel. 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 : None HEENT: None Psych: None Musculoskeletal: None Derm: None - Past Surgical History Past Surgical History: No /PROCUREMENT SPECIALIST: Other - Present Medications Home Medications: Ambulatory Orders Medication Instructions Recorded Confirmed Albuterol Sulfate [Albuterol 2 puffs INH Q4HR PRN 09/13/18 09/13/18 Sulfate Hfa] Albuterol Sulf [Ventolin Hfa 1 - 2 puffs INH Q4HR PRN #1 inhaler 11/20/18 Inhaler] Amox/Clav 875/125 [Augmentin] 1 each PO Q12H #20 tablet 11/20/18 predniSONE [Deltasone] 60 mg PO DAILY 5 Days tablet 11/20/18 Dicyclomine [Bentyl] 20 mg PO QID PRN #15 capsule 01/06/19 Loperamide [Imodium] 2 mg PO QID PRN #10 capsule 01/06/19 Ondansetron Odt [Zofran] 4 mg TL Q6H PRN #10 tablet 01/06/19 - Allergies Allergies/Adverse Reactions: Allergies Allergy/AdvReac Type Severity Reaction Status Date / Time Sulfa (Sulfonamide Allergy Rash Verified 01/06/19 14:25 Antibiotics) - Social History Does the pt smoke?: No Smoking Status: Never smoker Does the pt drink ETOH?: Yes Does the pt have substance abuse?: Yes - Immunizations Immunizations are current?: Yes - POLST Patient has POLST: No PD ED PE NORMAL - Vitals Vital signs reviewed: Yes - General General: Alert and oriented X 3, No acute distress - HEENT HEENT: PERRL, Pharynx benign - Neck Neck: Supple, no meningeal sign, No bony TTP - Cardiac Cardiac: RRR, No murmur - Respiratory Respiratory: No respiratory distress, Clear bilaterally - Abdomen Abdomen: Normal bowel sounds, Soft, Other (Minimal left upper quadrant tenderness without surgical signs) - Neuro Neuro: Alert and oriented X 3, Normal speech Results - Vitals Vitals: Vital Signs - 24 hr 01/06/19 14:23 Temperature 36.7 C Heart Rate 76 Respiratory 19 Rate Blood Pressure 133/93 H O2 Saturation 99 Oxygen O2 Source Room air - Labs Labs: Laboratory Tests 01/06/19 01/06/19 01/06/19 15:55 16:09 16:09 WBC 8.2 RBC 4.42 Hgb 11.2 L Hct 36.1 L MCV 81.7 MCH 25.3 L MCHC 31.0 L RDW 14.9 Plt Count 380 MPV 9.7 Neut # (Auto) 4.7 Lymph # (Auto) 2.4 [place] # (Auto) 0.7 Eos # (Auto) 0.3 Baso # (Auto) 0.1 Absolute Nucleated RBC 0.00 Nucleated RBC % 0.0 Sodium 137 Potassium 3.4 L Chloride 100 L Carbon Dioxide 26 Anion Gap 11.0 BUN 7 Creatinine 0.6 Estimated GFR (MDRD) 121 Glucose 95 Calcium 9.2 Total Bilirubin 0.8 AST 21 ALT 13 Alkaline Phosphatase 50 Total Protein 8.0 Albumin 4.2 Globulin 3.8 Albumin/Globulin Ratio 1.1 Lipase 32 Urine Color YELLOW Urine Clarity CLEAR Urine pH 6.5 Ur Specific [place] 1.010 Urine Protein NEGATIVE Urine Glucose (UA) NEGATIVE Urine Ketones 15 H Urine Occult Blood TRACE-LYSE Urine Nitrite NEGATIVE Urine Bilirubin NEGATIVE Urine Urobilinogen 0.2 (NORMAL) Ur Leukocyte Esterase NEGATIVE Ur Microscopic Review NOT INDICATED Urine Culture Comments NOT INDICATED Urine HCG, Qual NEGATIVE PD MEDICAL DECISION MAKING - ED course ED course: 28-year-old woman with what sounds like viral gastroenteritis. After the administration of Toradol, Zofran and Imodium she was feeling better and not nauseous. Nontender on reevaluation. Given appendicitis precautions. Departure - Departure Disposition: 01 Home, Self Care Clinical Impression: Gastroenteritis Condition: Good Record reviewed to determine appropriate education?: Yes Health Concerns: vomiting Plan of Treatment: Likely viral gastroenteritis conservative care, few days off work. Care Goals: resolution Assessment: as above Instructions: ED Gastroenteritis Viral Prescriptions: Dicyclomine [Bentyl] 20 mg PO QID PRN #15 capsule PRN Reason: Abdominal Pain Loperamide [Imodium] 2 mg PO QID PRN #10 capsule PRN Reason: Diarrhea Ondansetron Odt [Zofran] 4 mg TL Q6H PRN #10 tablet PRN Reason: Nausea / Vomiting Comments: Return in 24 hours if not better, anytime if worse or if pain moved to the bottom right or fever. Forms: Activity restrictions
[2019-01-06 16:02] LABS: BILIRUBIN,URINE NEGATIVE (NEGATIVE); GLUCOSE, URINE (UA) NEGATIVE (NEGATIVE); KETONES,URINE (UA) 15 mg/dL (NEGATIVE); LEUKOCYTE ESTERASE, URINE NEGATIVE (NEGATIVE); NITRITE,URINE NEGATIVE (NEGATIVE); OCCULT BLOOD,URINE TRACE-LYSE (NEGATIVE); PH,URINE 6.5 PH (5.0-7.5); PROTEIN,URINE NEGATIVE (NEGATIVE); UROBILINOGEN,URINE 0.2 (NORMAL) E.U./dL (NORMAL)
[2019-01-06 16:03] LABS: CLARITY,URINE CLEAR (CLEAR)
[2019-01-06 16:04] LABS: HCG UR QUAL NEGATIVE
[2019-01-06 16:20] LABS: BASOPHILS # (AUTO) 0.1 10^3/uL (0.0-0.1); BASOPHILS % (AUTO) 0.6 %; EOSINOPHILS # (AUTO) 0.3 10^3/uL (0.0-0.7); EOSINOPHILS % (AUTO) 3.4 %; HGB - HEMOGLOBIN 11.2 g/dL (12.0-16.0); LYMPHOCYTES # (AUTO) 2.4 10^3/uL (1.5-3.5); LYMPHOCYTES % (AUTO) 29.7 %; MEAN CORPUSCULAR HEMOGLOBIN 25.3 pg (27.0-31.0); MEAN CORPUSCULAR VOLUME 81.7 fL (81.0-99.0); MEAN PLATELET VOLUME 9.7 fL (7.9-10.8); MONOCYTES # (AUTO) 0.7 10^3/uL (0.0-1.0); MONOCYTES % (AUTO) 8.7 %; NEUTROPHILS # (AUTO) 4.7 10^3/uL (1.5-6.6); NEUTROPHILS % (AUTO) 57.4 %; PLT - PLATELET COUNT 380 10^3/uL (130-450); RED BLOOD COUNT 4.42 10^6/uL (4.20-5.40); RED CELL DISTRIBUTION WIDTH 14.9 % (12.0-15.0); WHITE BLOOD COUNT 8.2 x10^3/uL (4.8-10.8)
[2019-01-06 16:54] LABS: ALBUMIN 4.2 g/dL (3.2-5.5); ALBUMIN/GLOBULIN RATIO 1.1 (1.0-2.2); BILIRUBIN,TOTAL 0.8 mg/dL (0.2-1.0); CALCIUM 9.2 mg/dL (8.5-10.3); CREATININE 0.6 mg/dL (0.4-1.0)
[2019-01-06 17:10] VITALS: BP 127/96
== END 2019-01-06 17:10 | disposition home or self-care (01) ==
LOC: ED 14:05
DX: K52.9 Noninfective gastroenteritis and colitis, unspecified (principal)
CPT/HCPCS: 36415; 80053; 81003; 81025; 83690; 85025; 96374; 96375; 99283; A9270; 81001; 87086

== ENCOUNTER 2019-02-02 20:53 | Emergency (ER) | payer MEDICAID ==
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
[2019-02-02] MEDS ORDERED: ULIPRISTAL ACETATE 30 MG TABLET PO STA (22:00)
[2019-02-02] MEDS ORDERED: lamiVUDine/ZIDOVUDINE 150 MG/300 MG TABLET PO STA (22:00)
[2019-02-02] MEDS ORDERED: RALTEGRAVIR 400 MG TABLET PO STA (22:00)
[2019-02-02] MEDS ORDERED: AZITHROMYCIN 250 MG TABLET PO STA (22:29)
[2019-02-02] MEDS ORDERED: cefTRIAXone 250 MG VIAL IM STA (22:30)
[2019-02-02] MEDS ORDERED: LIDOCAINE 1% 2 ML VIAL MC ONE (22:30)
[2019-02-02] MEDS ORDERED: metroNIDAZOLE 250 MG TABLET PO STA (22:30)
[2019-02-02 22:36] LABS: BILIRUBIN,URINE NEGATIVE (NEGATIVE); GLUCOSE, URINE (UA) NEGATIVE (NEGATIVE); KETONES,URINE (UA) 40 mg/dL (NEGATIVE); LEUKOCYTE ESTERASE, URINE NEGATIVE (NEGATIVE); NITRITE,URINE NEGATIVE (NEGATIVE); OCCULT BLOOD,URINE TRACE-INTA (NEGATIVE); PH,URINE 6.5 PH (5.0-7.5); PROTEIN,URINE NEGATIVE (NEGATIVE); UROBILINOGEN,URINE 0.2 (NORMAL) E.U./dL (NORMAL)
[2019-02-02 22:38] LABS: CLARITY,URINE CLEAR (CLEAR); HCG UR QUAL NEGATIVE
[2019-02-03] MEDS ORDERED: cefTRIAXone 250 MG VIAL ONE
[2019-02-03] MEDS ORDERED: AZITHROMYCIN 250 MG TABLET PO ONE
[2019-02-03] MEDS ORDERED: LIDOCAINE-MPF 1% 2 ML AMP ONE (00:01)
[2019-02-03 00:35] VITALS: BP 134/88
[2019-02-03 18:02] LABS: TRICHOMONAS VAGINALIS DNA NEGATIVE (NEGATIVE)
[2019-02-06 13:26] LABS: HIV AG/AB 4TH GEN NON-REACTIVE (NON-REACTIVE)
[2019-02-06 15:35] LABS: HEPATITIS C ANTIBODY NON-REACTIVE (NON-REACTIVE)
[2019-02-07 18:27] LABS: SOURCE VAGINAL
== END 2019-02-03 00:50 | disposition home or self-care (01) ==
LOC: ED 20:53
DX: T76.21XA Adult sexual abuse, suspected, initial encounter (principal)
CPT/HCPCS: 0133C; 36415; 81003; 81025; 86317; 86803; 87389; 87491; 87529; 87591; 87661; 96372; A9270; 81001; 87086

== ENCOUNTER 2021-09-03 17:00 | Emergency (ER) | payer MEDICAID ==
[2021-09-03 17:25] LABS: BASOPHILS % (AUTO) 0.3 %; EOSINOPHILS % (AUTO) 0.3 %; HCT - HEMATOCRIT 37.9 % (37.0-47.0); HGB - HEMOGLOBIN 12.5 g/dL (12.0-16.0); LYMPHOCYTES % (AUTO) 3.2 %; MEAN CORPUSCULAR HEMOGLOBIN 27.5 pg (27.0-31.0); MEAN CORPUSCULAR VOLUME 83.3 fL (81.0-99.0); MEAN PLATELET VOLUME 9.4 fL (7.9-10.8); MONOCYTES % (AUTO) 7.8 %; NEUTROPHILS % (AUTO) 87.8 %; PLT - PLATELET COUNT 371 10^3/uL (130-450); RED BLOOD COUNT 4.55 10^6/uL (4.20-5.40); RED CELL DISTRIBUTION WIDTH 13.1 % (12.0-15.0); WHITE BLOOD COUNT 23.8 x10^3/uL (4.8-10.8)
[2021-09-03 17:29] LABS: SLIDE REVIEW? Indicated
[2021-09-03 17:34] LABS: GLUCOSE, URINE (UA) NEGATIVE (NEGATIVE); KETONES,URINE (UA) 40 mg/dL (NEGATIVE); LEUKOCYTE ESTERASE, URINE MODERATE (NEGATIVE); NITRITE,URINE NEGATIVE (NEGATIVE); OCCULT BLOOD,URINE LARGE (NEGATIVE); PH,URINE 5.5 PH (5.0-7.5); PROTEIN,URINE 100 mg/dL (NEGATIVE); UROBILINOGEN,URINE 0.2 (NORMAL) E.U./dL (NORMAL)
[2021-09-03] MEDS ORDERED: ONDANSETRON 4 MG/2 ML VIAL IVP STA (17:37)
[2021-09-03] MEDS ORDERED: MORPHINE 2 MG/ML CARPUJECT IVP STA (17:37)
--- NOTE | 2021-09-03 17:38 | ED Physician Documentation ---
History of Present Illness - Stated complaint Stated Complaint: ABD PX/DIZZY/HEADACHES/NAUSEA - Chief complaint Chief Complaint: Abd Pain - History obtained from History obtained from: Patient - History of Present Illness Pain level max: 9 Pain level now: 8 - Additonal information Additional information: Patient is a 31-year-old female who presents to the emergency department with right lower quadrant abdominal pain. Ongoing for the past 4 days. Gradually getting worse. Pain grew increasingly worse today. Worse with movement and palpation. Nothing makes it better. Some nausea but no vomiting. No vaginal bleeding or discharge. No fevers or chills. No diarrhea or constipation. Denies any possibility of . No vaginal bleeding or discharge. Review of Systems Constitutional: denies: Fever, Chills Throat: denies: Sore throat Cardiac: denies: Chest pain / pressure, Palpitations Respiratory: denies: Cough GI: denies: Vomiting, Diarrhea : reports: Dysuria, Frequency, Hesitancy Skin: denies: Rash Musculoskeletal: denies: Neck pain, Back pain PD PAST MEDICAL HISTORY - Past Medical History Cardiovascular: None Respiratory: Asthma Neuro: None Endocrine/Autoimmune: None GI: None ARTIFICIAL INTELLIGENCE SPECIALIST: None : None HEENT: None Psych: None Musculoskeletal: None Derm: None - Past Surgical History Past Surgical History: No /ARTIFICIAL INTELLIGENCE SPECIALIST: Other - Present Medications Home Medications: Ambulatory Orders Medication Instructions Recorded Confirmed Albuterol Sulf [Ventolin Hfa 1 - 2 puffs INH Q4HR PRN #1 inhaler 11/20/18 08/09/19 Inhaler] Fluticasone/Salmeterol [Advair Hfa 2 puffs IH Q4HR PRN 08/09/19 08/09/19 115-21 Mcg Inhaler] Pnv No.95/Ferrous Fum/Folic AC 1 tab PO DAILY 08/09/19 08/09/19 [ Vitamins Tablet] Cefpodoxime Proxetil [Vantin] 100 mg PO Q12H #20 tablet 09/03/21 Ondansetron Odt [Zofran] 4 mg TL Q6H PRN #10 tablet 09/03/21 Oxycodone HCl/Acetaminophen 1 - 2 each PO Q6H PRN #14 tablet 09/03/21 [Percocet 5-325 mg Tablet] - Allergies Allergies/Adverse Reactions: Allergies Allergy/AdvReac Type Severity Reaction Status Date / Time Sulfa (Sulfonamide Allergy Rash Verified 09/03/21 17:04 Antibiotics) - Social History Does the pt smoke?: No Smoking Status: Never smoker Does the pt drink ETOH?: Yes Does the pt have substance abuse?: Yes - Immunizations Immunizations are current?: Yes - POLST Patient has POLST: No PD ED PE NORMAL - Vitals Vital signs reviewed: Yes - General General: Alert and oriented X 3, No acute distress, Well developed/nourished - HEENT HEENT: PERRL, Moist mucous membranes - Cardiac Cardiac: RRR - Respiratory Respiratory: No respiratory distress, Clear bilaterally - Abdomen Abdomen: Soft, Non distended, Other (Tender to palpation right lower quadrant near McBurney's point/right lower pelvic. No peritoneal signs) - Back Back: No spinal TTP, Other (Mild right CVA tenderness) - Derm Derm: Warm and dry - Extremities Extremities: No edema - Neuro Neuro: Alert and oriented X 3 - Psych Psych: Normal mood, Normal affect Results - Vitals Vitals: Vital Signs - 24 hr 09/03/21 09/03/21 09/03/21 17:04 17:54 19:41 Temperature 36.5 C 36.9 C Heart Rate 120 H 110 H 104 H Respiratory 16 14 Rate Blood Pressure 123/74 115/74 O2 Saturation 100 97 96 Oxygen O2 Source Room air - Labs Labs: Laboratory Tests 09/03/21 09/03/21 09/03/21 17:12 17:20 17:20 WBC 23.8 H RBC 4.55 Hgb 12.5 Hct 37.9 MCV 83.3 MCH 27.5 MCHC 33.0 RDW 13.1 Plt Count 371 MPV 9.4 Neut # (Auto) MUSIC COMPOSER Lymph # (Auto) MUSIC COMPOSER [place] # (Auto) MUSIC COMPOSER Eos # (Auto) MUSIC COMPOSER Baso # (Auto) MUSIC COMPOSER Absolute Nucleated RBC MUSIC COMPOSER Band Neuts % (Manual) Not Reportable Abnorm Lymph % (Manual) Not Reportable Nucleated RBC % MUSIC COMPOSER Neutrophils # (Manual) Not Reportable Lymphocytes # (Manual) Not Reportable Monocytes # (Manual) Not Reportable Eosinophils # (Manual) Not Reportable Basophils # (Manual) Not Reportable Differential Comment MANUAL=AUTO DIFF Manual Slide Review Indicated WBC Morphology NORMAL APPEARANCE Platelet Estimate NORMAL (130-450,000) Platelet Morphology NORMAL APPEARANCE RBC Morph Micro Appear NORMAL APPEARANCE Sodium 131 L Potassium 3.5 Chloride 95 L Carbon Dioxide 22 Anion Gap 14.0 H BUN 16 Creatinine 1.2 H Estimated GFR (MDRD) 53 L Glucose 108 H Calcium 8.9 Total Bilirubin 0.9 AST 21 ALT 15 Alkaline Phosphatase 74 Total Protein 8.2 Albumin 4.4 Globulin 3.8 Albumin/Globulin Ratio 1.2 Lipase 29 Urine Color YELLOW Urine Clarity CLOUDY Urine pH 5.5 Ur Specific [place] 1.025 Urine Protein 100 H Urine Glucose (UA) NEGATIVE Urine Ketones 40 H Urine Occult Blood LARGE H Urine Nitrite NEGATIVE Urine Bilirubin NEGATIVE Urine Urobilinogen 0.2 (NORMAL) Ur Leukocyte Esterase MODERATE H Urine RBC 11-25 H Urine WBC >25 H Ur Squamous Epith Cells MANY Squamous H Urine Bacteria Many H Ur Microscopic Review INDICATED Urine Culture Comments NOT INDICATED Urine HCG, Qual NEGATIVE - Rads (name of study) CT abdomen and pelvis Radiology: Final report received, EMP read contemporaneously, See rad report PD MEDICAL DECISION MAKING - ED course Complexity details: reviewed results, re-evaluated patient, considered differential, d/w patient ED course: Patient appears to have a UTI on laboratory testing. Has significant leukocytosis. Afebrile. Given Rocephin IV. Concern for potential early pyelonephritis. We will place on oral antibiotics for home. Pain well controlled. Also appears to have a right-sided ovarian cyst on CT scan. Patient is well-appearing, nontoxic. Patient counseled regarding signs and symptoms for which I believe and urgent re-evaluation would be necessary. Patient with good understanding of and agreement to plan and is comfortable going home at this time This document was made in part using voice recognition software. While efforts are made to proofread this document, sound alike and grammatical errors may occur. I am prescribing a short course of short-acting opioid pain medication for this patient. I have reviewed the patients IMPORT CUSTOMER SERVICE MANAGER and no concerning findings were noted. I have discussed that the opioids are for short term therapy only, and will not be refilled from the ED. IMPRESSION: 1. CT abdomen and pelvis without acute abnormalities. Normal appendix. 2. Very small amount of pelvic free fluid likely physiologic. Departure - Departure Disposition: 01 Home, Self Care Clinical Impression: Pelvic pain, Pyelonephritis Abdominal pain Qualifiers: Abdominal location: right lower quadrant Qualified Code(s): R10.31 - Right lower quadrant pain Ovarian cyst Qualifiers: Laterality: right Qualified Code(s): N83.201 - Unspecified ovarian cyst, right side UTI (urinary tract infection) Qualifiers: Urinary tract infection type: acute cystitis Hematuria presence: without hematuria Qualified Code(s): N30.00 - Acute cystitis without hematuria Condition: Good Instructions: ED Cyst Ovarian, ED UTI Cystitis Female Follow-Up: FLACA VASQUEZ [Primary Care Provider] - Within 1 week Prescriptions: Oxycodone HCl/Acetaminophen [Percocet 5-325 mg Tablet] 1 - 2 each PO Q6H PRN #14 tablet PRN Reason: pain Cefpodoxime Proxetil [Vantin] 100 mg PO Q12H #20 tablet Ondansetron Odt [Zofran] 4 mg TL Q6H PRN #10 tablet PRN Reason: Nausea / Vomiting Comments: Your prescriptions were sent to [facility] in [place]. Please follow-up with your doctor for further care. Take all antibiotics until gone. If you are not improving in the next 1 to 2 days, you should return for repeat evaluation. Return if you are worsening sooner. I am prescribing a short course of narcotic pain medication for you. These are potentially dangerous and addictive medications that should be used carefully. These medications may constipate you. Take an [id number] stool softener (docusate) twice daily with plenty of water while taking these medications. If you go 24 hours without a bowel movement, take [id number] miralax, per package instructions. Do not drink or drive while taking these medications. If you received narcotic or sedating medications while in the emergency department, do not drive for 24 hours. Store this medication in a safe, secure place and out of reach of children. It is a violation of federal law to give or sell this medication to another person or to use in a manner other than prescribed. The ED will not refill narcotic prescriptions, including prescriptions lost or stolen. To dispose of unwanted medications: 1. [facility] at [address] in [place] has a medication drop box. They accept prescription medications (in pill form) Tuesday through Tuesday 9:00 a.m. to 5:00 p.m. 2. The [facility] accepts prescription medications (in pill form only) for disposal year round. Call for more information. 3. Contact the [facility] for the next [facility] sponsored prescription drug collection event. , [phone], or [phone]; Discharge Date/Time: 09/03/21 19:51
[2021-09-03 17:39] LABS: ALBUMIN 4.4 g/dL (3.2-5.5); ALBUMIN/GLOBULIN RATIO 1.2 (1.0-2.2); BILIRUBIN,TOTAL 0.9 mg/dL (0.2-1.0); CALCIUM 8.9 mg/dL (8.5-10.3); CREATININE 1.2 mg/dL (0.4-1.0); POTASSIUM 3.5 mmol/L (3.5-5.0); TOTAL PROTEIN 8.2 g/dL (6.7-8.2)
[2021-09-03 17:44] LABS: BILIRUBIN,URINE NEGATIVE (NEGATIVE); CLARITY,URINE CLOUDY (CLEAR); HCG UR QUAL NEGATIVE; ICTOTEST,URINE NEGATIVE
[2021-09-03 17:45] LABS: BACTERIA,URINE Many /HPF (None Seen); SQUAMOUS EPITHELIAL CELL,UR MANY Squamous (<= Few); WBC,URINE >25 /HPF (0-5)
[2021-09-03] MEDS ORDERED: IOVERSOL 320 100 ML VIAL IVP ONE ×2 (17:53→19:07)
[2021-09-03 17:55] VITALS: BP 115/74
--- NOTE | 2021-09-03 18:48 | CT Report ---
PROCEDURE: Abdomen/Pelvis W INDICATIONS: RLQ abd pain CONTRAST: IV CONTRAST: Optiray 320 ml: 100 PO CONTRAST: *NO PO CONTRAST TECHNIQUE: After the administration of weight appropriate dose of intravenous contrast, 5 mm thick sections acqu ired from the diaphragms to the symphysis. 5 mm thick coronal and sagittal reformats were acquired. For radiation dose reduction, the following was used: automated exposure control, adjustment of mA and/or kV according to patient size. COMPARISON: 10/16/2017 FINDINGS: Image quality: Excellent. ABDOMEN: Lung bases: Lung bases are clear. Heart size is normal. Solid organs: Liver and spleen are normal in size and enhancement. Gallbladder is unremarkable Paresh iary system is non dilated. Pancreas enhances normally. No adrenal nodules. Kidneys demonstrate no rmal size and enhancement, without hydronephrosis. Peritoneum and bowel: Bowel loops demonstrate normal wall thickness and caliber. No free fluid or a ir. Normal appendix Nodes and vessels: No retroperitoneal or mesenteric adenopathy by size criteria. Aorta and inferior vena cava are normal in size. Miscellaneous: No ventral hernias. PELVIS: Genitourinary: Bladder wall thickness is normal. Reproductive organs are unremarkable in appearance . Very small amount of pelvic free fluid likely physiologic. Miscellaneous: No inguinal hernias or adenopathy. Bones: No suspicious bony lesions. No vertebral body compression fractures. IMPRESSION: 1. CT abdomen and pelvis without acute abnormalities. Normal appendix. 2. Very small amount of pelvic free fluid likely physiologic. Reviewed by: Tal Arreguin MD on 09/03/2021 5:47 PM [facility] Approved by: Tal Arreguin MD on 09/03/2021 5:47 PM [facility] Station ID: [id number]
[2021-09-03] MEDS ORDERED: cefTRIAXone 1 GM VIAL IVP STA (18:52)
[2021-09-03 18:59] LABS: PLATELET ESTIMATE, MANUAL NORMAL (130-450,000) (NORMAL); PLATELET MORPHOLOGY NORMAL APPEARANCE (NORMAL); RBC MORPHOLOGY (MULTIPLE) NORMAL APPEARANCE (NORMAL); WBC MORPHOLOGY (MULTIPLE) NORMAL APPEARANCE (NORMAL)
[2021-09-03 19:00] LABS: DIFFERENTIAL COMMENT MANUAL=AUTO DIFF
[2021-09-03] MEDS ORDERED: oxyCODONE 5 MG TABLET PO STA (19:13)
== END 2021-09-03 19:51 | disposition home or self-care (01) ==
LOC: ED 17:00
DX: N39.0 Urinary tract infection, site not specified (principal); N83.201 Unspecified ovarian cyst, right side; N12 Tubulo-interstitial nephritis, not specified as acute or chronic
CPT/HCPCS: 36415; 74177; 80053; 81001; 81025; 83690; 85025; 96374; 96375; 99284; A9270; Q9967; 81003; 87086